=== PATIENT | male | born 1990 | race American Indian/Alaskan Native ===

== ENCOUNTER 2018-03-21 16:14 | Emergency (ER) | payer OTHER ==
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
--- NOTE | 2018-03-21 17:40 | CRLCR ---
HISTORY: Fall, left rib injury. TECHNIQUE: Two views of the chest. COMPARISON: No prior. FINDINGS: Cardiac size and pulmonary vasculature within normal limits. No acute lung infiltrate or pulmonary edema. No pneumothorax or pleural effusion. No acute bony abnormality. IMPRESSION: No acute disease. Dictated by Enrique Webb MD @ 03/21/2018 5:39:26 PM Dictated by: Enrique Webb MD @ 03/21/2018 17:39:29 (Electronically Signed)
== END 2018-03-21 17:58 | disposition home or self-care (01) ==
LOC: JP.ED 16:14
DX: S70.02XA Contusion of left hip, initial encounter (principal); R07.81 Pleurodynia; W10.8XXA Fall (on) (from) other stairs and steps, initial encounter
CPT/HCPCS: 36415; 71046; 85027; 99283; 99284

== ENCOUNTER 2020-04-18 21:51 | Emergency (ER) | payer OTHER ==
[2020-04-18] MEDS: Sodium Chloride 0.9% 10 ML Syringe FLUSH PRN ×2 (22:26→22:36)
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
[2020-04-18] MEDS ORDERED: Iopamidol 612 MG/ML 100 ML Bottle IV SCH (22:30)
[2020-04-18] MEDS ORDERED: Sodium Chloride 0.9% 80 ML IV SCH (22:30)
[2020-04-18] MEDS ORDERED: Ketorolac 30 MG/ML SDV IVPUSH ONE (22:49)
[2020-04-18] MEDS ORDERED: Ondansetron 4 MG/2 ML SDV IVPUSH ONE (22:49)
--- NOTE | 2020-04-18 23:22 | CRLCT ---
Indication: Abdominal pain Technique: Contrast enhanced axial CT imaging through the abdomen and pelvis. 100 mL Isovue-300 contrast agent was administered intravenously. Sagittal and coronal reconstructions are provided. Comparison: None Findings: No abnormalities are demonstrated relating to the liver, gallbladder, spleen, pancreas, adrenal glands, and kidneys. The portal vein is patent. The abdominal aorta is normal in caliber. There is no abdominal lymphadenopathy. The stomach and duodenum are unremarkable. There is no small bowel wall thickening or abnormal distention. The appendix is noninflamed. There is no colonic wall thickening, mesenteric edema, or intraperitoneal free fluid. There is moderate distention of the distal left ureter. The ureter appears to implant at the bladder dome near the midline. The right ureter is unremarkable. There is no bladder wall thickening. The osseous structures are unremarkable. The included lung bases are clear. Impression: 1. No acute process demonstrated in the abdomen pelvis. 2. Isolated moderate distention of the distal left ureter with implantation at the bladder dome. Correlate for history of ureterovesical reflux with surgical implantation of the left ureter. Please note that all CT scans at this facility use dose modulation, iterative reconstruction, and/or weight-based dosing when appropriate to reduce radiation dose to as low as reasonably achievable. Dictated by Yosvany Mcintyre MD @ Apr 18 2020 11:02PM Signed by Dr. Yosvany Mcintyre @ Apr 18 2020 11:20PM
== END 2020-04-18 23:39 | disposition home or self-care (01) ==
LOC: JP.ED 21:51
DX: A08.4 Viral intestinal infection, unspecified (principal); J45.909 Unspecified asthma, uncomplicated; F17.210 Nicotine dependence, cigarettes, uncomplicated; Z79.899 Other long term (current) drug therapy
CPT/HCPCS: 36415; 74177; 80053; 81001; 83690; 85025; 86140; 96374; 96375; 99284; J1885; J2405; Q9967; 99282

== ENCOUNTER 2020-09-24 15:08 | Emergency (ER) | payer MEDICAID, OTHER ==
[2020-09-24] MEDS ORDERED: Ketorolac 10 MG Tab PO ONE (16:05)
[2020-09-24] MEDS ORDERED: Acetaminophen/oxyCODONE 325-5 MG Tab PO ONE (16:05)
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
--- NOTE | 2020-09-25 09:10 | CR ---
Ribs 2V w Chest Rt, Shoulder Comp Rt CLINICAL HISTORY: Trauma FINDINGS: There is no acute fracture within the ribs. No destructive changes are seen. There is no focal pleural thickening or obvious effusion. There are multiple right rib deformities with some callus formation from old healed rib fractures. Previous clavicular fracture IMPRESSION: Multiple old right rib fractures No acute fracture seen Ribs 2V w Chest Rt, Shoulder Comp Rt CLINICAL HISTORY: Trauma FINDINGS: There is no acute fracture or dislocation in the right shoulder. Patient is old clavicular fracture with open reduction. Impression: Previous ORIF right clavicle
== END 2020-09-24 17:58 | disposition home or self-care (01) ==
LOC: JP.ED 15:08
DX: M25.511 Pain in right shoulder (principal); J45.909 Unspecified asthma, uncomplicated; Z79.899 Other long term (current) drug therapy; Z72.0 Tobacco use
CPT/HCPCS: 71101; 73030; 99283; A9270

== ENCOUNTER 2021-01-14 20:27 | Emergency (ER) | payer MEDICAID, OTHER ==
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
--- NOTE | 2021-01-15 09:16 | CR ---
Shoulder Comp Rt CLINICAL HISTORY: Follow-up fracture FINDINGS: There is a previous midclavicular fracture with open reduction using plate and screws. Configuration is similar to prior study. A subtle note of some narrowing at the AC joint compared to prior studies. This may be positional
== END 2021-01-14 22:07 | disposition home or self-care (01) ==
LOC: JP.ED 20:27
DX: S40.011A Contusion of right shoulder, initial encounter (principal); R03.0 Elevated blood-pressure reading, without diagnosis of hypertension; Z72.0 Tobacco use; W00.9XXA Unspecified fall due to ice and snow, initial encounter
CPT/HCPCS: 73030-26-RT; 73030-RT; 99283-25

== ENCOUNTER 2021-01-31 18:52 | Emergency (ER) | payer MEDICAID ==
[2021-01-31] MEDS ORDERED: Sodium Chloride 0.9% 10 ML Syringe FLUSH PRN (19:07)
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
[2021-01-31] MEDS ORDERED: Iopamidol 612 MG/ML 150 ML Bottle IV PRN (19:19)
[2021-01-31] MEDS ORDERED: Sodium Chloride 0.9% 10 ML SDV FLUSH ONE (19:19)
[2021-01-31] MEDS ORDERED: Sodium Chloride 0.9% 100 ML IV SCH (19:30)
--- NOTE | 2021-01-31 20:45 | CRLCT ---
For Patients: As a result of the Century Cures Act, medical imaging exams and procedure reports are released immediately into your electronic medical record. You may view this report before your referring provider. If you have questions, please contact your health care provider. INDICATION: Right-sided pain and bruising since this morning with no history of trauma. COMPARISON: CT of the abdomen and pelvis with contrast from 04/18/2020 TECHNIQUE: CT examination of the abdomen and pelvis was performed with the uneventful intravenous administration of 100 cc of Omnipaque 350 while 3 mm thick axial sections were obtained from the lung bases through the pubic symphysis. Oral contrast was not administered. Please note that all CT scans at this facility use dose modulation, iterative reconstruction, and/or weight-based dosing when appropriate to reduce radiation dose to as low as reasonably achievable. FINDINGS: During the interval, a sacral spinal stimulator generator and electrode have been placed on the right, with the electrode passing through the right S3 sacral foramina. There is no sign of any hematoma or contusion in the soft tissues of the right abdomen or pelvis to correlate with the history of right-sided bruising and pain. In the abdomen, the liver, spleen, pancreas, and adrenals are normal in appearance. The kidneys are normal in appearance. Again seen is prominent dilatation of the left distal ureter with implantation on the bladder dome at the midline. There is no sign of left hydronephrosis. Again seen is moderate thickening of the right superior bladder dome. The right ureter remains normal in appearance with normal appearance of the right UVJ. The gallbladder is normal in appearance. The abdominal aorta is normal in caliber with no sign of dilatation. There is no sign of retroperitoneal mass or adenopathy. The stomach, loops of small bowel, and colon in the abdomen are normal in appearance. In the pelvis, the appendix is normal in appearance with no sign of inflammatory process. The loops of small bowel and colon in the pelvis are normal in appearance. The prostate is normal in appearance. There is no sign of pelvic or inguinal mass or adenopathy. There is no sign of free air or free fluid in the abdomen or pelvis. The lung bases are clear. The osseous structures are normal in appearance for the patient`s age. IMPRESSION: Nothing seen to correlate with history of right-sided pain and bruising. No sign of any hematoma or mass in the right abdominal or pelvic wall. CT of the pelvis shows continued prominent dilatation of the left distal ureter with implantation on the bladder dome at the midline, probably postsurgical. No sign of hydronephrosis on the left. Stable moderate thickening of the wall of the right superior bladder dome. Normal CT of the abdomen with contrast. Please note that all CT scans at this facility use dose modulation, iterative reconstruction, and/or weight-based dosing when appropriate to reduce radiation dose to as low as reasonably achievable. Dictated by Allen Terry MD @ 01/31/2021 8:43:30 PM (Electronically Signed)
== END 2021-01-31 20:38 | disposition home or self-care (01) ==
LOC: JP.ED 18:52
DX: S30.1XXA Contusion of abdominal wall, initial encounter (principal); J45.909 Unspecified asthma, uncomplicated; Z79.899 Other long term (current) drug therapy
CPT/HCPCS: 36415; 74177; 80053; 83690; 85025; 85610; 85730; 99284; Q9967

== ENCOUNTER 2021-03-03 22:12 | Emergency (ER) | payer OTHER, MEDICAID | END 2021-03-04 00:20 | LOC: JP.ED 22:12 | DX: F10.120 Alcohol abuse with intoxication, uncomplicated (principal); J45.909 Unspecified asthma, uncomplicated; Z79.899 Other long term (current) drug therapy | CPT/HCPCS: 99284 ==

== ENCOUNTER 2024-10-29 09:24 | Emergency (ER) | payer MEDICAID, MEDICARE, OTHER ==
[2024-10-29] MEDS ORDERED: Sodium Chloride 0.9% 10 ML Syringe FLUSH PRN (10:23)
[2024-10-29 10:37] LABS: BASOPHILS PERCENT AUTO 0.2 % (0.1-1.3); EOSINOPHILS ABSOLUTE AUTO 0.28 K/uL (0.00-0.40); EOSINOPHILS PERCENT AUTO 2.2 % (0.0-5.4); IMMATURE GRAN ABSOLUTE AUTO 0.04 K/uL (0.00-0.23); IMMATURE GRAN PERCENT AUTO 0.3 % (0.0-0.7); LYMPHOCYTES ABSOLUTE AUTO 0.85 K/uL (0.8-3.3); LYMPHOCYTES PERCENT AUTO 6.8 % (11.4-47.7); MONOCYTES ABSOLUTE AUTO 1.05 K/uL (0.20-0.90); MONOCYTES PERCENT AUTO 8.4 % (3.3-12.6); NEUTROPHILS ABSOLUTE AUTO 10.23 K/uL (1.0-7.6); NEUTROPHILS PERCENT AUTO 82.1 % (40.0-78.1); PLATELET COUNT,PLT 249 K/uL (130-375); RED BLOOD CELL COUNT 4.41 M/uL (4.14-5.76); WHITE BLOOD CELL COUNT,WBC 12.5 K/uL (3.2-11.0)
[2024-10-29 10:38] LABS: BASOPHILS ABSOLUTE AUTO 0.02 K/uL (0.00-0.10)
[2024-10-29 10:56] LABS: ALANINE AMINOTRANSFERASE,ALT 20 U/L (12-78); ASPARTATE AMNIOTRANSFERASE,AST 19 U/L (15-37); BILIRUBIN TOTAL 0.6 mg/dL (0.2-1.0); BLOOD UREA NITROGEN,BUN 8 mg/dL (7-18); CARBON DIOXIDE,CO2 28 mmol/L (21-32); CHLORIDE,CL 102 mmol/L (100-108); CREATININE 0.6 mg/dL (0.8-1.3); EST CRCL DRUG DOSING (CG) 180.81 mL/min; ESTIMATED GFR 131 mL/min (>60); GLUCOSE RANDOM 111 mg/dL (74-106); POTASSIUM,K 3.3 mmol/L (3.6-5.2); PROTEIN TOTAL,TP 7.2 g/dL (6.4-8.2); SODIUM,NA 142 mmol/L (140-148)
[2024-10-29 10:57] LABS: A/G RATIO 1.0 (1.2-2.2)
[2024-10-29] MEDS: Sodium Chloride 0.9% 10 ML Syringe FLUSH PRN (10:58)
[2024-10-29] MEDS: Iopamidol 612 MG/ML 100 ML Bottle IV PRN (10:58)
== END 2024-10-29 11:48 | disposition left against medical advice (07) ==
LOC: JP.ED 09:24
DX: G89.18 Other acute postprocedural pain (principal); R10.31 Right lower quadrant pain; R10.32 Left lower quadrant pain; K21.9 Gastro-esophageal reflux disease without esophagitis; F17.210 Nicotine dependence, cigarettes, uncomplicated; Z88.8 Allergy status to other drugs, medicaments and biological substances; Z79.899 Other long term (current) drug therapy
CPT/HCPCS: 36415; 74177; 80053; 83605; 85025; 99284; Q9967